=== PATIENT | female | born 1965 | race Caucasian/White ===

== ENCOUNTER → 2019-01-06 | Day surgery (SDC) | payer OTHER ==
[~2019-01-06] MED LIST: ALLEGRA ALLERG180 MG PO; AMERGE2.5 MG PO; FLONASE 0.05%50 MCG NASAL; HYDROCODON-ACE1 EAC7 PO; LIPITOR80 MG PO; LISINOPRIL20 MG PO; NORTRIPTYLINE H10 M1 PO; NORTRIPTYLINE H25 M3 PO; PROTONIX40 M1 PO; SINGULAIR 10 MG10 M1 PO; SYNTHROID125 MC1 PO; TRAMADOL 50 MG50 MG PO
--- NOTE | ~2019-01-06 | OP ---
[address] [address] OPERATIVE REPORT Name: ASHIA MORROW Room: [facility]#: [id number] Admission: 01/06/19 Attend Phys: Frandy Gary DO Discharge: Date of : 65 Report #: [id number] THIS REPORT FOR: //name// CC: Frandy GARCÍA DICTATED BY: Jeancarlos Chandra DO DATE OF SERVICE: 01/06/2019 DICTATING FOR: Frandy Gary DO AGE: A 53-year-old female. PREOPERATIVE DIAGNOSIS: Biliary dyskinesia. POSTOPERATIVE DIAGNOSIS: Biliary dyskinesia. PRIMARY SURGEON: Frandy Gary DO CO-SURGEON: Jeancarlos Chandra DO, PGY3 DATABASE MANAGEMENT SPECIALIST: Alexi To DO, PGY3 OPERATION PERFORMED: Laparoscopic cholecystectomy with immunofluorescence. ANESTHESIA TYPE: General and local. ESTIMATED BLOOD LOSS: 10. SPECIMEN REMOVED: Gallbladder. COMPLICATIONS: None. FINDINGS: Distended gallbladder. INDICATIONS: The patient is a pleasant 53-year-old female, who presented to the office with chief complaint of right upper quadrant abdominal pain for several years, noticed over the past few months has increased in frequency. Pain has been constant for the last few months, it waxes and wanes in intensity. She has postprandial meal pain exacerbated by fried and fatty foods. The patient was worked up with a HIDA scan. She had reproducible symptoms during the PIPIDA. Her gallbladder ejection fraction was noted to be 37%. We recommended laparoscopic cholecystectomy with immunofluorescence as outpatient. Full [address] [address] OPERATIVE REPORT Name: ASHIA MORROW ABIGAIL Room: [facility] M..#: [id number] Admission: 01/06/19 Attend Phys: Frandy Gary DO Discharge: Date of : 65 Report #: [id number] discussion of procedure, alternatives, risks and possible complications was discussed to include, but not limited to bleeding, infection, postoperative pain, scarring, hernia, conversion to open procedure, bile leak, biloma, need for further surgery, injury to other abdominal organs mainly stomach, bowel, liver and bile ducts, as well as anesthesia risks. The patient voiced understanding of these risks and agreed to proceed with surgery. OPERATIVE TECHNIQUE: The patient was again seen and examined in preoperative holding. Fully informed written consent was obtained. Preoperative antibiotics were given, 2 grams of Ancef. The patient was subsequently transported to the operating room suite, placed on the operating room table in the supine position. At this time, anesthesia induced general anesthesia via endotracheal intubation and this was successful. Next, foot board was placed at the patient's feet. SCDs were placed to bilateral lower extremity calves. Grounding pad was placed to right lateral thigh. Arms were placed out on arm boards. All extremities and joints were padded and protected. The patient was prepped and draped using standard sterile fashion. Time-out was performed prior to onset of procedure. I began by making a vertical incision superior to the umbilicus using open Quispe technique, dissected down through skin and subcutaneous tissue until the level of the fascia was reached. Fascia was scored, grasped with bilateral Kochers, elevated. Peritoneum was then pierced using a hemostat, two interrupted 0 Vicryl sutures were placed at the apices of the fascia in sqyaga-ji-rzsmj fashion and a 5 mm Robbi trocar was placed into the abdomen. Abdomen was insufflated first using low flow then high flow. A 5 mm 0 degree laparoscopic camera was introduced into the abdomen, noting no injury to underlying structures upon entry into the abdomen. We next turned our attention to the right upper quadrant, noting a distended gallbladder. Intraoperative pictures were obtained. The patient was placed in reverse Trendelenburg with left side down. Additional 5 mm trocar was placed in the epigastric region as well as two 5 mm trocars in the right upper quadrant. Gallbladder was grasped with a locking wavy grasper. This was elevated. Next, a blunt grasper and electrocautery were used to locate Krystal's pouch. Once Krystal's pouch was located, immunofluorescence ICG green dye again had been given. Preoperatively, this was used to evaluate the bile ducts. There was noted to be a long cystic duct that was noted to enter into the common bile duct. Intraoperative pictures were obtained of this as well. Next, dissection was carried out using [place] grasper and electrocautery to dissect out the cystic duct. This was performed at the anterior lateral aspects first then circumferentially around the duct. Once the duct was isolated, the cystic artery was noted to be just posterior to this. This was also dissected out circumferentially using [place] grasper. Critical view of safety was obtained. Intraoperative pictures were taken. Next, 2 Hem-o-Vinod clips were placed in the distal cystic duct and once proximally. Next, the cystic artery was clipped in the similar fashion with 1 clip distally and 1 clip proximally. Cystic duct and artery were transected using laparoscopic scissors. Again, immunofluorescence was used to evaluate that there was no bile leakage. Next, the gallbladder was transected off of the [address] [address] OPERATIVE REPORT Name: ASHIA MORROW Room: [facility]#: [id number] Admission: 01/06/19 Attend Phys: Frandy Gary, Discharge: Date of : 65 Report #: [id number] liver bed using electrocautery. There was noted to be one small additional posterior artery coursing into the backside of the gallbladder. This was dissected out with [place] grasper and clipped once distally and electrocautery was used to transect the artery. Once the gallbladder was fully excised off of the liver bed, it was placed into an EndoCatch bag through the umbilical trocar. Liver bed was then evaluated and hemostasis had been achieved. Again, immunofluorescence was used to evaluate the liver bed and bile ducts. There was noted to be no bile leakage or ongoing hemorrhaging. The patient was placed back in the supine position. Abdomen was desufflated under direct visualization, 5 mm trocars were removed. Once the abdomen was fully desufflated, camera was removed as was the Robbi trocar. The gallbladder was removed in the EndoCatch bag through the umbilical incision and handed off to the back table to be sent for permanent pathology. Next, fascia was closed with an additional 2 interrupted 0 Vicryl sutures in a auqprr-kf-fqrjy fashion. A layered closure was then performed to the subcutaneous deep dermal layers using a 3-0 Vicryl. Skin was closed using a running 4-0 Monocryl. The additional 5 mm trocars were closed using interrupted 4-0 Monocryl. A 0.5% Marcaine local anesthetic was injected at each incision site for local anesthetic. Abdomen was cleansed using wet and dry lap. Sterile dressing was then applied Mastisol, Steri-Strips, Tegaderms, 4 x 4's and Medipore tape. The patient tolerated the procedure well and was extubated in the OR, transported to the PACU in stable condition after brief recovery from anesthesia. PLAN: Discharged home. Follow up in the office with Dr. Gary in 1 week. By: 1345 [id number] Gary, DO /nt
[2019-01-06 11:47] LABS: HEMATOCRIT 44.9 % (37.0-47.0); HEMOGLOBIN 15.6 gm/dL (12.0-15.0); MCH 30.5 pg (26.0-34.0); MCHC 34.7 g/dL (28.0-37.0); MCV 88.1 fL (80.0-100.0); RBC 5.1 mil/uL (4.20-5.00); RDW-CV 12.7 % (10.5-14.5); WBC 4.9 thou/uL (4.0-11.0)
[2019-01-06 11:59] LABS: CALCIUM 9.6 mg/dL (8.5-10.1); CREATININE 0.8 mg/dL (0.6-1.3); POTASSIUM 3.9 mmol/L (3.5-5.1)
[2019-01-06 12:04] LABS: TOTAL BILIRUBIN 0.5 mg/dL (<0.1-1.0); TOTAL PROTEIN 7.6 g/dL (6.4-8.2)
--- NOTE | 2019-01-06 16:20 | EKG ---
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
--- NOTE | 2019-01-08 17:06 | PATH ---
[facility] [address] [place] [address] PATHOLOGY RPT PROCEDURE Name: GEORGETTE MORROW Room: [facility].#: [id number] Admission: 01/06/19 Date of : 65 Discharge: Report #: [id number] Path Case #: [id number] [facility] Accession Number: [id number] . 01 Material submitted: . gallbladder - GALLBLADDER AND CONTENTS . 01 Clinical history: . Chronic cholecystitis . 02 Diagnosis: Gallbladder and contents: - Chronic cholecystitis with incidental adenomatous polyp, negative for high grade dysplasia. (LANI/db; ) LBQ/01/08/2019 . 02 Electronically signed: . Ayaz Lombardo MD, Pathologist NPI- [id number] . 01 Gross description: . Received in formalin labeled "Georgette Morrow, gallbladder and contents," is an intact, turgid gallbladder measuring 7.3 x 3.4 x 3.2 cm in greatest dimensions. The serosal surface is smooth to shaggy, blue-green and slightly hemorrhagic in appearance. Opening the specimen reveals a velvety, dark green mucosa measuring 0.1 cm in thickness, with an average gallbladder wall thickness of 0.1 cm. A single dark green possible polyp is noted on the mucosa, measuring 0.1 cm in maximum dimension and extending to within 2.9 cm of the infundibulum. Calculi are not present within the specimen or specimen container. Box Printing Machine Operator sections of the infundibulum, body and fundus are submitted in cassette A1. (DAC; 01/07/2019) XDC/XDC . 02 Pathologist provided ICD-10: K81.1, D13.5 . 02 CPT . 803847 Specimen Comment: A courtesy copy of this report has been sent to Specimen Comment: [phone], . Specimen Comment: Report sent to / DR ROBLERO Performed at: [address] [facility] [id number] MD Sher Stephenson MD Phone: [phone] Performed at: [address] [place] [address] PATHOLOGY RPT PROCEDURE Name: ODALYSGEORGETTEHortencia HAYES Room: [facility]#: [id number] Admission: 01/06/19 Date of : 65 Discharge: Report #: [id number] Path Case #: [id number] [facility] Demetri Giron [address] Jania Velasquez, ZHANG Olson [id number] MD Ayaz Lombardo MD Phone: [phone]
== END | disposition home or self-care (01) ==
LOC: M.SUR 08:40
PROVIDERS: Surgery
DX: K81.1 Chronic cholecystitis (principal); D13.5 Benign neoplasm of extrahepatic bile ducts; Z88.8 Allergy status to other drugs, medicaments and biological substances; Z79.899 Other long term (current) drug therapy